=== PATIENT | female | born 1955 | race Caucasian/White ===

== ENCOUNTER 2017-10-27 09:45 | Outpatient (CLI) | payer OTHER, SELFPAY ==
[2017-10-27 10:17] VITALS: BP 118/60; PULSE 60; RESP 18; TEMP 36.8; O2SAT 97
[2018-05-03 10:50] VITALS: BMI 23.0
== END 2017-10-27 10:35 | disposition home or self-care (01) ==
LOC: INF 09:55
PROVIDERS: Family Provider Family Medicine; Visit Provider Family Medicine
DX: M81.0 Age-related osteoporosis without current pathological fracture (principal)
CPT/HCPCS: 96372; J0897

== ENCOUNTER 2018-05-09 08:15 | Outpatient (CLI) | payer OTHER, SELFPAY ==
[2018-05-09 08:30] VITALS: BP 119/54; PULSE 62; RESP 20; TEMP 36.5; O2SAT 94
[2018-05-09 08:37] VITALS: BMI 31.2
== END 2018-05-09 08:44 | disposition home or self-care (01) ==
LOC: INF 08:23
PROVIDERS: PCP Family Medicine; Visit Provider Family Medicine
DX: M81.0 Age-related osteoporosis without current pathological fracture (principal)
CPT/HCPCS: 96372; J0897

== ENCOUNTER 2019-01-10 15:55 | Outpatient (CLI) | payer OTHER, SELFPAY ==
[2019-01-10 16:10] VITALS: BP 126/67; PULSE 50; RESP 18; O2SAT 95
== END 2019-01-10 16:20 | disposition home or self-care (01) ==
LOC: INF 15:58
PROVIDERS: Visit Provider Family Medicine
DX: M81.0 Age-related osteoporosis without current pathological fracture (principal)
CPT/HCPCS: 96372; J0897

== ENCOUNTER 2019-07-13 16:03 | Outpatient (CLI) | payer OTHER, SELFPAY ==
[2019-07-13 16:20] VITALS: BP 145/74; PULSE 59; RESP 18; O2SAT 99
== END 2019-07-13 16:17 | disposition home or self-care (01) ==
LOC: INF 16:03
PROVIDERS: Visit Provider Family Medicine
DX: M81.0 Age-related osteoporosis without current pathological fracture (principal)
CPT/HCPCS: 96372; J0897